=== PATIENT | male | born 1950 | race Two or more races ===

== ENCOUNTER → 2017-03-30 | Outpatient (CLI) | payer OTHER ==
--- NOTE | 2017-03-30 10:40 | KCIC ---
PROCEDURE CT of the abdomen and pelvis without contrast HISTORY Left lower quadrant pain. Inguinal hernia without obstruction. Pain for 1 week. Previous hernia repair. COMPARISON None TECHNIQUE No intravenous or oral contrast per request. Exposure: One or more of the following individualized dose reduction techniques were utilized for this exam: 1. Automated exposure control. 2. Adjustment of the mA and/or kV according to patient size. 3. Use of iterative reconstruction technique. FINDINGS Lung bases are clear. Examination of solid viscera, GI tract and vascular structures is compromised by the noncontrast technique. Small fat containing umbilical hernia is noted. There is ill-defined soft tissue at the inguinal canals bilaterally, may represent scarring from previous hernia repair. No herniated bowel is identified. Liver, spleen, pancreas, adrenals, and kidneys appear grossly unremarkable. No calcified gallstone. No aortic aneurysm. No bowel obstruction. Scattered colonic diverticula are noted. No evidence of pericolonic inflammatory type change. Appendix is normal. No ascites. Urinary bladder is incompletely distended, but there is suggestion of wall thickening. Degenerative spondylosis of the visualized spine. There is stenosis at the lumbosacral junction. IMPRESSION 1. No evidence of bowel containing hernia or obstruction. 2. No acute findings. Electronically signed by: Emerson Enciso MD (March 30, 2017 10:39:12)
== END | disposition home or self-care (01) ==
LOC: KCIC CT 09:39
PROVIDERS: ATTEND Family Medicine
DX: R10.32 Left lower quadrant pain (principal); K40.90 Unilateral inguinal hernia, without obstruction or gangrene, not specified as recurrent
CPT/HCPCS: 74176